=== PATIENT | male | born 1940 | race Caucasian/White ===

== ENCOUNTER → 2017-09-11 | Outpatient (CLI) | payer OTHER ==
--- NOTE | 2017-09-11 16:29 | RADRPT ---
EXAM DATE: 09/11/2017 3:22 PM EDT AGE/SEX: 76 years / Male INDICATIONS: Parkinson's disease. Tremors and unsteady gait. CLINICAL DATA: This is the patient's initial encounter. Patient reports that signs and symptoms have been present for 1 day and indicates a pain score of 0/10. MEDICAL/SURGICAL HISTORY: Hypertension. Diabetes mellitus type II. CABG. Fusion, cervical. COMPARISON: No prior [facility] exams available for comparison. No external comparison. DOSE: 4.9 mCi Ioflupane Iodine-123 in 2.5ml total volume. MEDICATION(S): 130 mg Potasium Iodine PO one hour prior to injection. IMAGING: Spect/CT imaging with fusion was performed. SPECT IMAGIN.5 hours. RADIATION DOSE: 30.27 CTDIvol(mGy) TECHNIQUE: SPECT imaging of the brain was performed in sagittal, axial and coronal planes. Attenuati on correction was performed with computed tomography and both the attenuation correction and non-atte nuation corrected data sets were reviewed. FINDINGS: There is normal biodistribution of radionuclide with symmetric crescent-shaped areas of activity are in the striatum which appears distinct relative to the surrounding brain tissue. CONCLUSION: Negative examination. Electronically signed by: Nic Saenz MD 09/11/2017 4:28 PM EDT
== END ==
LOC: HRAD 09:00
DX: G20 Parkinson's disease (principal)
CPT/HCPCS: 78607; A9584